=== PATIENT | female | born 1945 ===

== ENCOUNTER → 2020-07-10 08:00 | Outpatient (CLI) | payer OTHER ==
[~2020-07-10 08:00] MED LIST: ABILIFY2 MG PO; ADULT LOW DOSE81 M1 PO; ARICEPT5 MG PO; COZAAR25 MG PO; CRESTOR5 MG PO; DETROL1 MG PO; HYDRODIURIL12.5 MG PO; NAMENDA5 MG PO; PRISTIQ25 MG PO; TEGRETOL200 MG PO
== END | disposition home or self-care (01) ==
LOC: LAB 08:00 → ADM 10:45 → EDSTATUS 07-11 10:45 → CIR.AMB 07-11 10:45
PROVIDERS: ATTEND Orthopaedic Surgery
DX: S52.502A Unspecified fracture of the lower end of left radius, initial encounter for closed fracture (principal); M81.0 Age-related osteoporosis without current pathological fracture; Z01.810 Encounter for preprocedural cardiovascular examination

== ENCOUNTER 2022-05-21 14:49 | Inpatient (IN) | payer OTHER ==
[~2022-05-21] VITALS: Ht 152.4 cm; Wt 95.3 kg
== END 2022-05-23 12:07 | disposition home or self-care (01) | DRG 641 ==
LOC: ER 14:49 → MEDJ 19:26
PROVIDERS: ADMIT Internal Medicine; ATTEND Internal Medicine
PROC: BW28ZZZ Computerized Tomography (CT Scan) of Head (ICD-10-PCS; principal; 2022-05-21)
PROC: B24BYZZ Ultrasonography of Heart with Aorta using Other Contrast (ICD-10-PCS; 2022-05-21)
PROC: B325ZZZ Computerized Tomography (CT Scan) of Bilateral Common Carotid Arteries (ICD-10-PCS; 2022-05-21)
DX: E87.1 Hypo-osmolality and hyponatremia (principal); R42 Dizziness and giddiness; T42.75XA Adverse effect of unspecified antiepileptic and sedative-hypnotic drugs, initial encounter; G50.0 Trigeminal neuralgia; I10 Essential (primary) hypertension; F03.90 Unspecified dementia, unspecified severity, without behavioral disturbance, psychotic disturbance, mood disturbance, and anxiety; Z85.3 Personal history of malignant neoplasm of breast

== ENCOUNTER 2022-10-09 10:26 | Outpatient (CLI) | payer OTHER | END 2022-10-09 10:30 | disposition home or self-care (01) | LOC: NUCLEAR 10:26 | PROVIDERS: ATTEND Specialist | DX: I87.2 Venous insufficiency (chronic) (peripheral) (principal) ==